=== PATIENT | female | born 1965 | race Caucasian/White ===

== ENCOUNTER 2018-04-01 11:09 | Emergency (ER) | payer MEDICAID ==
--- NOTE | 2018-04-01 11:35 | ED Physician Chart ---
ED Chief Complaint/HPI - Patient Information Date Seen:: 04/01/18 Time Seen:: 11:29 Chief Complaint:: RIGHT KNEE TRAUMA History of Present Illness:: THIS IS A 52 YR OLD FEMALE WITH ARTHRITIS AND STATES THAT SHE FELL YESTERDAY AND INJURED HER RIGHT KNEE. SHE STATES THAT THE PAIN EXTENDS UP TO THE RIGHT HIP. SHE IS CURRENTLY TAKING MULTIPLE DRUGS FOR HER CHRONIC ARTHRITIS CONDITION. Allergies:: Allergies Allergy/AdvReac Type Severity Reaction Status Date / Time No Known Allergies Allergy Verified 04/01/18 11:23 Vitals:: Vital Signs - 8 hr 04/01/18 11:23 Temp 97.8 F HR 84 RR 16 BP 133/87 O2 Sat % 99 Historian:: Patient, Family Member (SON) Review:: Nurse's Note Reviewed, Old Chart Reviewed ED Review of Systems - Review of Systems General/Constitutional: No fever, No chills, No weight loss, No weakness, No diaphoresis, No edema, No loss of appetite Skin: No skin lesions, No rash, No bruising Head: No headache, No light-headedness Eyes: No loss of vision, No pain, No diplopia ENT: No earache, No nasal drainage, No sore throat, No tinnitus Neck: No neck pain, No swelling, No thyromegaly, No stiffness, No mass noted Cardio Vascular: No chest pain, No palpitations, No PND, No orthopnea, No edema Pulmonary: No SOB, No cough, No sputum, No wheezing GI: No nausea, No vomiting, No diarrhea, No pain, No melena, No hematochezia, No constipation, No hematemesis G/U: No dysuria, No frequency, No hematuria Musculoskeletal: Bone or joint pain, No back pain, No muscle pain Endocrine: No polyuria, No polydipsia Psychiatric: No prior psych history, No depression, No anxiety, No suicidal ideation Hematopoietic: No bruising, No lymphadenopathy Allergic/Immuno: No urticaria, No angioedema Neurological: No syncope, No focal symptoms, No weakness, No paresthesia, No headache, No seizure, No dizziness, No confusion, No vertigo ED Past Medical History - Past Medical History Obtainable: Yes Past Medical History: Arthritis Family History: None Social History: Non Smoker, No Alcohol, No Drug Use Surgical History: other (BILATERAL KNEE REPLACEMENTS) Psychiatricy History: None Medication: Reviewed ED Physical Exam - Physical Examination General/Constitutional: Awake, Well-developed, well-nourished, Alert, No distress, GCS 15, Non-toxic appearing, Ambulatory Head: Atraumatic Eyes: Lids, conjuctiva normal, PERRL, EOMI Skin: Nl inspection, No rash, No skin lesions, No ecchymosis, Well hydrated, No lymphadenopathy ENMT: External ears, nose nl, Nasal exam nl, Lips, teeth, gums nl Neck: Nontender, Full ROM w/o pain, No JVD, No nuchal rigidity, No bruit, No mass, No stridor Respiratory: Nl effort/Exclusion, Clear to Auscultation, No Wheeze/Rhonchi/Rales Cardio Vascular: RRR, No murmur, gallop, rubs, NL S1 S2 GI: No tenderness/rebounding/guarding, No organomegaly, No hernia, Normal BS's, Nondistended, No mass/bruits, No McBurney tenderness : No CVA tenderness Extremities: No tenderness or effusion, Full ROM, normal strength in all extremities, No edema, Normal digits & nails Other Extremities comments:: RIGHT KNEE AREA IS NOT TENDER, NOT SWOLLEN AND THERE IS NO PAINFUL ROM NOTED. Neuro/Psych: Alert/oriented, DTR's symmetric, Normal sensory exam, Normal motor strength, Judgement/insight normal, Mood normal, Normal gait, No focal deficits Misc: Normal back, No paraspinal tenderness ED Labs/Radiology/EKG Results - Radiology Results Results: CT SCAN OF THE RIGHT KNEE AND HIP = NEG FOR ACUTE FRACTURE. ED Assessment - Assessment General Assessment: CONTUSION OF THE RIGHT KNEE ED Septic Shock - . Is Septic Shock (SBP<90, OR Lactate>4 mmol\L) present?: No - <6hrs of presentation: Vital Signs: Vital Signs - 8 hr 04/01/18 11:23 Temp 97.8 F HR 84 RR 16 BP 133/87 O2 Sat % 99 ED Reassessment (Disposition) - Reassessment Reassessment Condition:: Unchanged - Diagnosis Diagnosis:: CONTUSION OF THE RIGHT KNEE - Aftercare/Follow up Instructions Aftercare/Follow-Up Instructions:: Counseled pt regarding lab results/diagnosis & need follow up, Refer to Discharge Instructions, Counseled pt & family regarding lab results/diagnosis & need follow up - Patient Disposition Discharge/Transfer:: Home Condition at Disposition:: Stable ED Discharge Plan - Patient Disposition Admit/Discharge/Transfer: PT DISCHARGED HOME
--- NOTE | 2018-04-02 09:09 | Diagnostic Imaging Report ---
CT scan pelvis HISTORY: Pain, trauma Total DLP equals 433 CTDI equals 9.9 Axial sections were obtained from a level above the iliac crest down to level below the pubic symphysis. Exam limited due to artifact related to metallic density of bilateral hip arthroplasties. Bilateral hip replacements are seen. There is a mildly displaced fracture involving the right pubic symphysis and right inferior pubic ramus. No abnormal masses or fluid collections seen within the pelvis. IMPRESSION: 1. Mildly displaced fracture involving the right pubic symphysis and right inferior pubic ramus. The above findings were not appreciated on the earlier preliminary impression. These findings were reported to the emergency department (PRAKASH Gonzalez), 04/02/2018, 9:05 AM). Degenerative changes seen in the visualized lumbosacral spine
--- NOTE | 2018-04-02 09:12 | Diagnostic Imaging Report ---
CT scan right knee HISTORY: Pain, trauma Total DLP equals 202 CTDI equals 7.3 Axial sections were obtained through the right knee. Additional sagittal and coronal reformatted images are provided. Exam is compromised and limited due to artifact associated with a right knee arthroplasty. No obvious acute bony abnormalities are seen about the knee region. No definite displaced fractures. No abnormal soft tissue masses identified. Atherosclerotic vascular calcification noted. IMPRESSION: 1. Limited exam related to a right knee arthroplasty 2. No definite acute bony abnormalities 3. Atherosclerotic vascular changes
== END 2018-04-01 13:59 | disposition home or self-care (01) ==
LOC: ER 11:09
DX: S80.01XA Contusion of right knee, initial encounter (principal); W19.XXXA Unspecified fall, initial encounter; Y93.89 Activity, other specified; Y92.89 Other specified places as the place of occurrence of the external cause; Y99.8 Other external cause status
CPT/HCPCS: 99284; 72192; 73700; J1885; Z7502

== ENCOUNTER 2018-04-02 13:53 | Inpatient (IN) | payer MEDICAID ==
--- NOTE | 2018-04-02 14:37 | ED Physician Chart ---
ED Chief Complaint/HPI - Patient Information Date Seen:: 04/02/18 Time Seen:: 14:25 Chief Complaint:: hip pain pelvic pain History of Present Illness:: 52 yr old female s/p trip and fall with c/o pelvic pain on cement at 130 pm last tuesday with pelvic pain and hip pain was evaluated with ct pelvis but official report came back as mildly displaced rt pubic symphysis and inferior pubic ramus fx pt comes back for reevaluation Allergies:: Allergies Allergy/AdvReac Type Severity Reaction Status Date / Time No Known Allergies Allergy Verified 04/01/18 11:23 Vitals:: Vital Signs - 8 hr 04/02/18 14:03 Temp 99.0 F HR 99 RR 17 BP 124/78 O2 Sat % 98 Historian:: Patient, Family Member ED Review of Systems - Review of Systems General/Constitutional: No fever, No chills, No weight loss, No weakness, No diaphoresis, No edema, No loss of appetite Skin: No skin lesions, No rash, No bruising Head: No headache, No light-headedness Eyes: No loss of vision, No pain, No diplopia ENT: No earache, No nasal drainage, No sore throat, No tinnitus Neck: No neck pain, No swelling, No thyromegaly, No stiffness, No mass noted Cardio Vascular: No chest pain, No palpitations, No PND, No orthopnea, No edema Pulmonary: No SOB, No cough, No sputum, No wheezing GI: No nausea, No vomiting, No diarrhea, No pain, No melena, No hematochezia, No constipation, No hematemesis G/U: No dysuria, No frequency, No hematuria Musculoskeletal: Bone or joint pain, Other (pelvic hip pain) Endocrine: No polyuria, No polydipsia Psychiatric: No prior psych history, No depression, No anxiety, No suicidal ideation Hematopoietic: No bruising, No lymphadenopathy Allergic/Immuno: No urticaria, No angioedema Neurological: No syncope, No focal symptoms, No weakness, No paresthesia, No headache, No seizure, No dizziness, No confusion, No vertigo ED Past Medical History - Past Medical History Past Medical History: Other (severe RA on plaquenil and prednisone and gabapentin) Family Medical History - Family Member Sister Hx Family Cancer: No Hx Family Congestive Heart Failure: No Hx Family Hypertension: No Hx Family Stroke: No Hx Family Diabetes: No Hx Family Seizures: No Hx Family AIDS: No Hx Family COPD: No Hx Family Psychiatric Problems: No ED Physical Exam - Physical Examination General/Constitutional: Awake (pubic tenderness and hip tenderness), Well- developed, well-nourished, Alert, No distress, GCS 15, Non-toxic appearing, Ambulatory Head: Atraumatic Eyes: Lids, conjuctiva normal, PERRL, EOMI Skin: Nl inspection, No rash, No skin lesions, No ecchymosis, Well hydrated, No lymphadenopathy ENMT: External ears, nose nl, Nasal exam nl, Lips, teeth, gums nl Neck: Nontender, Full ROM w/o pain, No JVD, No nuchal rigidity, No bruit, No mass, No stridor Respiratory: Nl effort/Exclusion, Clear to Auscultation, No Wheeze/Rhonchi/Rales Cardio Vascular: RRR, No murmur, gallop, rubs, NL S1 S2 GI: No tenderness/rebounding/guarding, No organomegaly, No hernia, Normal BS's, Nondistended, No mass/bruits, No McBurney tenderness : No CVA tenderness Extremities: No tenderness or effusion, Full ROM, normal strength in all extremities, No edema, Normal digits & nails Other Extremities comments:: severe ra changes hands with ulnar deviation Neuro/Psych: Alert/oriented, DTR's symmetric, Normal sensory exam, Normal motor strength, Judgement/insight normal, Mood normal, Normal gait, No focal deficits Misc: Normal back, No paraspinal tenderness ED Assessment - Assessment General Assessment: fall on pelvis with pubic symphysis fx and rt inferior pubic rami fx ED Septic Shock - . Is Septic Shock (SBP<90, OR Lactate>4 mmol\L) present?: No - <6hrs of presentation: Vital Signs: Vital Signs - 8 hr 04/02/18 14:03 Temp 99.0 F HR 99 RR 17 BP 124/78 O2 Sat % 98 ED Reassessment (Disposition) - Diagnosis Diagnosis:: pelvic fx fall - Patient Disposition Discharge/Transfer:: Acute Care w/in this hosp Accepting Physician:: dr tucker
[2018-04-02] MEDS ORDERED: Hydrocodone/APAP 5mg/325mg Tab PO PRN (15:02)
[2018-04-02 16:06] VITALS: BP 123/75
[2018-04-02] MEDS: Morphine Sulfate 2 mg/mL 1mL Syr IVP PRN (16:57)
[2018-04-03] MEDS: Morphine Sulfate 2 mg/mL 1mL Syr IVP PRN ×2 (03:09→20:50)
[2018-04-03 05:18] LABS: % BASOPHILS 0.6 % (0.0-2.0); % EOSINOPHILS 2.7 % (0.0-5.0); % LYMPHOCYTES 28.5 % (20.0-50.0); % MONOCYTES 12.6 % (2.0-10.0); % NEUTROPHILS 55.6 % (40.0-80.0); EOSINOPHILE ABSOLUTE 0.1 Th/cmm (0.1-0.4); HEMOGLOBIN 12.6 gm/dL (12-16); LYMPHOCYTE ABSOLUTE 1.1 Th/cmm (1.5-3.0); MEAN CELL VOLUME 90.7 fl (81-100); MEAN CORPUSCULAR HEMOGLOBIN 30.8 pg (27.0-31.0); MEAN PLATELET VOLUME 8.3 fl; MONOCYTE ABSOLUTE 0.5 Th/cmm (0.3-1.0); NEUTROPHILE ABSOLUTE 2.1 Th/cmm (1.8-8.0); PLATELET COUNT 227 Th/cmm (150-400); RED BLOOD COUNT 4.08 Mil/cmm (3.80-5.10); RED CELL DISTRIBUTION WIDTH 13.3 % (11.5-20.0)
[2018-04-03 05:28] LABS: WHITE BLOOD COUNT 3.8 Th/cmm (4.8-10.8)
[2018-04-03 05:51] LABS: ALB/GLOB RATIO 1.2 (1.0-1.8); ALBUMIN 3.8 gm/dL (3.7-5.3); ALKALINE PHOSPHATASE 213 U/L (34-104); ANION GAP 9.9 (7.0-16.0); BILIRUBIN,TOTAL 1.4 mg/dL (0.3-1.0); BUN - UREA NITROGEN 12 mg/dL (7-25); CALCIUM SERUM 8.9 mg/dL (8.6-10.3); CARBON DIOXIDE 25.1 mEq/L (21.0-31.0); CHLORIDE 106 mEq/L (98-107); CREATININE - SERUM 0.7 mg/dL (0.6-1.2); GFR AFRICAN-AMERICAN > 60.0 ml/min (>90); GFR NON AFRICAN-AMERICAN > 60.0 ml/min; GLUCOSE 97 mg/dL (70-105); SGOT 146 U/L (13-39); SGPT/ALT 131 U/L (7-52); SODIUM SERUM 137 mEq/L (136-145); TOTAL PROTEIN,SERUM 6.9 gm/dL (6.0-8.3)
[2018-04-03] MEDS: Hydroxychloroquine 200 mg Tab PO SCH (11:17)
[2018-04-03] MEDS: Fish Oil 1,000 MG SGL PO SCH (11:18)
--- NOTE | 2018-04-03 12:23 | History & Physical ---
ADMIT DATE: CHIEF COMPLAINT: Right-sided hip and pelvic pain, status post mechanical fall. HISTORY OF PRESENT ILLNESS: The patient is a very pleasant 52-year-old lady with history of rheumatoid arthritis diagnosed about 25 years ago, who was in her usual state of health until 3 days ago when she fell down while walking in the sidewalk. There was apparently an uneven space and she tripped with her right foot, landing on the cement floor face forward. She was helped by bystanders and immediately complained of right-sided hip pain, which is worst when walking. The pain again is more pronounced with movement and it tends radiate to the right lower extremity on the anterior side. She came in to ED, the next morning, had a CT scan of the hip and was sent home. The CT of the pelvis was then read showing a mildly displaced right pubic symphysis and inferior pubic ramus fracture. The patient was called and asked to return to the ER and now has been admitted for further evaluation. PAST MEDICAL HISTORY: Rheumatoid arthritis. PAST SURGICAL HISTORY: Include a right shoulder surgery, bilateral hip surgeries and bilateral knee surgeries. She also has underwent 1 . FAMILY HISTORY: Maternal grandfather had rheumatoid arthritis, otherwise negative. SOCIAL HISTORY: Denies any tobacco, ETOH or illicit drug usage. ALLERGIES: NKDA. OUTPATIENT MEDICATIONS: Naproxen 375 every day, omega-3 1000 mg every day, Plaquenil 200 mg every day, multivitamins every day, prednisone 1 mg every day. REVIEW OF SYSTEMS: CONSTITUTIONAL: No fever or chills. No recent weight loss. CARDIOVASCULAR: No chest pain, palpitations. PULMONARY: No cough, no shortness of breath, no phlegm production. GASTROINTESTINAL: No bowel habit changes. GENITOURINARY: No bladder habit changes. NEUROLOGIC: No changes in vision. She denies any syncope, any dizziness, any vertigo. MUSCULOSKELETAL: Please refer to HPI. PHYSICAL EXAMINATION: VITAL SIGNS: Temperature 97.4, pulse 78, respirations 18, BP 112/63, satting 97-98% on room air. GENERAL: She is a well-developed, mildly obese female, awake, alert and oriented x 3, not in acute distress. Nontoxic as well. HEAD AND NECK: Normocephalic, atraumatic. Pupils are reactive to light. Extraocular movements are intact. Oropharynx is moist and clear. NECK: There is no JVD or LAD. CARDIAC: Regular rate and rhythm without any murmurs. LUNGS: Clear to auscultation bilaterally with no audible wheezing, rhonchi, or crackles. ABDOMEN: Soft, supple, nontender, nondistended, normoactive bowel sounds. EXTREMITIES: Lower extremities, there is no clubbing, cyanosis or edema. On the right lower extremity, there is decreased range of motion secondary to the pain, but there is no open bruises or there are no open wounds or noticeable bruising. NEUROLOGIC: Grossly intact, nonfocal. LABORATORY DATA: White count 3.8, otherwise CBC within normal limits. Chemistry panel was within normal limits. Total bilirubin 1.4, AST 146, ALT 131, alkaline phosphatase 213. DIAGNOSTICS: CT of the pelvis, please refer to HPI. IMPRESSION: 1. Status post mechanical fall with mildly displaced right pubic symphysis and inferior pubic rami fractures. 2. History of rheumatoid arthritis. 3. Mild transaminitis-2ry to meds? PLAN: The patient has been admitted to the medical/surgical floor for further management and care. She has been placed on pain medication and she will be started on NSAIDs with meals. She will be kept on her other medications as scheduled and I will ask for an ortho eval for management and care. PT will also be ordered. JOB# [id number] ZAY
[2018-04-03] MEDS: Multivitamin Tab PO SCH (14:43)
[2018-04-04] MEDS: Hydroxychloroquine 200 mg Tab PO SCH (08:28)
[2018-04-04] MEDS: Fish Oil 1,000 MG SGL PO SCH (08:31)
[2018-04-04] MEDS: Multivitamin Tab PO SCH (08:31)
--- NOTE | 2018-04-04 18:15 | Discharge Summary ---
DATE OF DISCHARGE: 04/04/2018 ADMITTING DIAGNOSES: 1. Mildly displaced right pubic symphysis and inferior pubic rami fracture. 2. Status post mechanical fall. 3. Mild transaminitis. SECONDARY DIAGNOSES: History of rheumatoid arthritis. DISCHARGE DIAGNOSES: 1. Mildly displaced - clinically stable, right pubic symphysis and inferior pubic rami fracture. 2. Status post mechanical fall. 3. Mild transaminitis. CONSULTANTS: Orthopedic Surgery at the time of admission was not available. MAJOR PROCEDURES: She had undergone a CT of abdomen and pelvis prior to the admission showing the above-mentioned findings. DISCHARGE MEDICATIONS: Tylenol 500 mg q. 4 p.r.n. for mild to moderate pain, ibuprofen 800 mg t.i.d. with meals, prednisone 1 mg every day, multivitamins every day, Plaquenil 200 mg every day, omega-3 1000 mg daily. BRIEF HOSPITAL COURSE: The patient is a 52-year-old lady with a history of rheumatoid arthritis who had a mechanical fall 3 days prior to admission as she was walking on the sidewalk. The patient apparently tripped and fell, hit first to a cement floor/side sidewalk. The patient immediately started complaining of right hip pain and after it did not improve, she came into the ED the following morning where she underwent a CT of the pelvis and abdomen. She was sent home given that the pain was not that intense, but was called the following day after the CT showed the above-mentioned findings. She was admitted to the medical floor for supportive care and treatment. She was placed on morphine and p.o. antiinflammatories and received PT. Since been admitted, the patient reports improvement of her pain and is able to ambulate without any difficulty. I instructed the patient to follow up with her primary care doctor and to get an ortho eval as an outpatient given that Orthopedics was not available to see the patient during this admission. Given also the fact that the patient's pain has improved dramatically and that her fractures show only minimal displacement, she was agreeable to go home with the above-mentioned care. CONDITION ON DISCHARGE: Stable. DISPOSITION: Discharged home to self-care. JOB# [id number]
== END 2018-04-04 15:00 | disposition home or self-care (01) | DRG 341 ==
LOC: ER 13:53 → MSI 14:48
PROVIDERS: ADMIT Internal Medicine; ATTEND Internal Medicine
DX: S32.511A Fracture of superior rim of right pubis, initial encounter for closed fracture (principal); M06.9 Rheumatoid arthritis, unspecified; W01.0XXA Fall on same level from slipping, tripping and stumbling without subsequent striking against object, initial encounter; Y93.89 Activity, other specified; Y92.89 Other specified places as the place of occurrence of the external cause; Y99.8 Other external cause status; R74.0 Nonspecific elevation of levels of transaminase and lactic acid dehydrogenase [LDH]
CPT/HCPCS: 36415-UA; 80053-TC; 82948-90; 83735-TC; 85025-TC; J2270; Z7610